=== PATIENT | male | born 1985 | race Caucasian/White ===

== ENCOUNTER 2018-11-17 11:47 | Emergency (ER) | payer SELFPAY ==
[~2018-11-17] VITALS: Ht 182.9 cm; Wt 75.0 kg
[2018-11-17 15:11] VITALS: BP 123/91
== END 2018-11-17 15:13 | disposition home or self-care (01) ==
LOC: ER 11:47
DX: D17.0 Benign lipomatous neoplasm of skin and subcutaneous tissue of head, face and neck (principal); D36.7 Benign neoplasm of other specified sites
CPT/HCPCS: 99283